=== PATIENT | male | born 1965 | race Asian ===

== ENCOUNTER 2023-03-30 23:15 | Emergency (ER) | payer OTHER ==
[~2023-03-30] VITALS: Ht 177.8 cm; Wt 79.4 kg
--- NOTE | 2023-03-30 23:21 | NUR ---
BIBA TO BED #11
[2023-03-30 23:22] VITALS: BP 141/80; PULSE 84; RESP 22; TEMP 97.7; O2SAT 97
--- NOTE | 2023-03-30 23:43 | NUR ---
Labs collected and sent to lab
--- NOTE | 2023-03-30 23:45 | NUR ---
Xray by bedside at this time
--- NOTE | 2023-03-30 23:46 | NUR ---
Attempted to collect urine for labs, per , patient is unable to produce urine. ERMD made aware.
[2023-03-30 23:47] LABS: BASOPHILS % (AUTO) 0.6 % (0.0-2.0); EOSINOPHILS # (AUTO) 0.3 K/uL (0-0.4); EOSINOPHILS % (AUTO) 3.3 % (0.0-4.0); HEMATOCRIT 36.3 % (36-52); HEMOGLOBIN 12.2 g/dL (12.0-18.0); LYMPHOCYTES # (AUTO) 0.9 K/uL (2.0-11.5); MEAN CORPUSCULAR HEMOGLOBIN 32 pg (27-31); MEAN CORPUSCULAR HGB CONC 34 g/dL (33-37); MEAN CORPUSCULAR VOLUME 93.9 fL (80-94); MONOCYTES # (AUTO) 0.5 K/uL (0.8-1.0); NEUTROPHILS # (AUTO) 6.1 K/uL (1.8-7.7); NEUTROPHILS % (AUTO) 78.1 % (42.2-75.2); PLATELET COUNT (AUTO) 174 K/uL (140-450); RED BLOOD CELL COUNT(AUTO) 3.86 MIL/uL (4.20-6.10); RED CELL DISTRIBUTION WIDTH 15.3 % (11.6-13.7); WHITE BLOOD COUNT (AUTO) 7.8 K/uL (4.8-10.8)
[2023-03-31 00:13] LABS: ALBUMIN 3.8 g/dL (3.4-5.0); ASPARTATE AMINOTRANSFERASE 15 U/L (15-37); CARBON DIOXIDE 27.4 mmol/L (21-32); CHLORIDE 97 mmol/L (98-107); CREATININE 6.8 mg/dL (0.6-1.3); GFR ARICAN-AMERICAN 11 mL/min (>90); GLUCOSE 253 mg/dL (74-106); POTASSIUM 4.4 mmol/L (3.5-5.1); TOTAL BILIRUBIN 0.3 mg/dL (0.0-1.0)
[2023-03-31 00:14] LABS: UREA NITROGEN, BLOOD 72 mg/dL (7-18)
[2023-03-31 00:15] LABS: SODIUM SERUM 138 mmol/L (136-145)
--- NOTE | 2023-03-31 00:22 | NUR ---
Pt was taken to CT
[2023-03-31] MEDS ORDERED: MORPHINE SULFATE 4 MG/ML SYR IVP ONE (00:50)
--- NOTE | 2023-03-31 03:10 | NUR ---
Pt with episodes of right arm tremors, ERMD made aware and orders were received.
[2023-03-31] MEDS ORDERED: levETIRAcetam 1,000 MG in NACL 0.9% 100 ML IV ONE (03:15)
[2023-03-31] MEDS ORDERED: levETIRAcetam 100 MG/ML VIAL IV ONE (03:18)
--- NOTE | 2023-03-31 06:35 | NUR ---
Report given for transfer of care to nurse Elisa at [facility].
[2023-03-31 06:45] VITALS: BP 137/74; PULSE 80; RESP 18; O2SAT 95
--- NOTE | 2023-03-31 06:47 | NUR ---
Pt picked up by 2 transport staff from care transportation to transfer to [facility]
== END 2023-03-31 06:47 | disposition home or self-care (01) ==
LOC: MED 23:15
DX: R25.1 Tremor, unspecified (principal); G40.89 Other seizures; I11.0 Hypertensive heart disease with heart failure; N18.6 End stage renal disease; E11.9 Type 2 diabetes mellitus without complications; Z99.2 Dependence on renal dialysis; Z79.4 Long term (current) use of insulin; Z79.899 Other long term (current) drug therapy; Z91.040 Latex allergy status; Z88.8 Allergy status to other drugs, medicaments and biological substances; Z98.890 Other specified postprocedural states
CPT/HCPCS: 36415; 70450; 71045; 80053; 84484; 85025; 93005; 96365; 99285; J1953; Q0092

== ENCOUNTER 2023-04-21 21:06 | Inpatient (IN) | payer OTHER ==
[~2023-04-21] VITALS: Ht 177.8 cm; Wt 70.3 kg
--- NOTE | 2023-04-21 21:06 | NUR ---
2051 - PT BROUGHT TO BED 11 VIA ALEXIS ALLISON
[2023-04-21 21:07] VITALS: BP 135/80; PULSE 80; RESP 16; TEMP 98.4; O2SAT 98
--- NOTE | 2023-04-21 21:07 | NUR ---
BIB ambulance for bloody stool. Per report, pt had dialysis this morning where he had an episode of seizure. pmhx dialysis, seizures, hypertension, stroke, DM2. Addendum: 04/22/23 at 0507 by [email or web address] Dialysis days: MWF, dialysis catheter on right arm.
[2023-04-21 21:45] LABS: BASOPHILS % (AUTO) 0.8 % (0.0-2.0); EOSINOPHILS # (AUTO) 0.3 K/uL (0-0.4); EOSINOPHILS % (AUTO) 7.9 % (0.0-4.0); HEMATOCRIT 31.9 % (36-52); HEMOGLOBIN 10.6 g/dL (12.0-18.0); LYMPHOCYTES # (AUTO) 0.7 K/uL (2.0-11.5); LYMPHOCYTES % (AUTO) 19.7 % (20.5-51.1); MEAN CORPUSCULAR HEMOGLOBIN 32 pg (27-31); MEAN CORPUSCULAR HGB CONC 33 g/dL (33-37); MEAN CORPUSCULAR VOLUME 95.6 fL (80-94); MONOCYTES # (AUTO) 0.3 K/uL (0.8-1.0); MONOCYTES % (AUTO) 8.6 % (1.7-9.3); NEUTROPHILS # (AUTO) 2.4 K/uL (1.8-7.7); PLATELET COUNT (AUTO) 123 K/uL (140-450); RED BLOOD CELL COUNT(AUTO) 3.34 MIL/uL (4.20-6.10); RED CELL DISTRIBUTION WIDTH 15.5 % (11.6-13.7); WHITE BLOOD COUNT (AUTO) 3.7 K/uL (4.8-10.8)
[2023-04-21 22:00] LABS: PROTHROMBIN TIME 10.5 secs (10.8-13.4)
[2023-04-21 22:04] LABS: ALBUMIN 3.3 g/dL (3.4-5.0); ANION GAP 12.7 (8-16); ASPARTATE AMINOTRANSFERASE 18 U/L (15-37); CARBON DIOXIDE 29.3 mmol/L (21-32); CHLORIDE 101 mmol/L (98-107); GFR ARICAN-AMERICAN 19 mL/min (>90); GLUCOSE 209 mg/dL (74-106); LIPASE 81 U/L (73-393); SODIUM SERUM 139 mmol/L (136-145); TOTAL BILIRUBIN 0.3 mg/dL (0.0-1.0); UREA NITROGEN, BLOOD 22 mg/dL (7-18)
[2023-04-21 22:10] LABS: CREATININE 4.1 mg/dL (0.6-1.3)
[2023-04-21] MEDS ORDERED: NACL 0.9% 500 ML IV ONE (22:45)
[2023-04-21] MEDS ORDERED: PANTOPRAZOLE 80 MG in NACL 0.9% 100 ML IVP SCH (23:00)
[2023-04-21] MEDS ORDERED: PANTOPRAZOLE 40 MG INJ VIAL IVP ONE (23:00)
--- NOTE | 2023-04-21 23:15 | NUR ---
Per patient's , pt no longer produces urine. ERMD was notified.
--- NOTE | 2023-04-22 00:10 | NUR ---
Pt stated pt having seizure episodes after dialysis for the past week. ERMD was made aware.
--- NOTE | 2023-04-22 03:13 | NUR ---
Resting comfortably at this time. Rise and fall of chest noted. No s/s pain or distress.
--- NOTE | 2023-04-22 04:41 | NUR ---
Resting comfortably, rise and fall of chest noted. No s/s pain or discomfort.
[2023-04-22] MEDS ORDERED: CINA30TA4 PO (04:56)
[2023-04-22] MEDS ORDERED: FOLI1TAB90 PO (04:56)
[2023-04-22] MEDS ORDERED: CARV25TA2 PO ×2 (04:56)
[2023-04-22] MEDS ORDERED: CLON-529 TD (04:56)
[2023-04-22] MEDS ORDERED: ACET-1182 PO (04:56)
[2023-04-22] MEDS ORDERED: NA P133N1 RC (04:56)
[2023-04-22] MEDS ORDERED: DOCU100T31 PO (04:56)
[2023-04-22] MEDS ORDERED: AMLO10TA87 PO (04:56)
[2023-04-22] MEDS ORDERED: CLON0.1T15 PO ×2 (04:56)
[2023-04-22] MEDS ORDERED: BISA-246 RC (04:56)
[2023-04-22] MEDS ORDERED: ATOR40TA40 PO (04:56)
--- NOTE | 2023-04-22 05:20 | NUR ---
IV cannula on Lt. Hand Infiltrated and removed. Reinsertion done and successful at Lt AC with G. 22 cannula.
[2023-04-22] MEDS ORDERED: POTASSIUM CHLORIDE 10 MEQ TABER PO PRN (05:50)
[2023-04-22] MEDS ORDERED: ZOLPIDEM 5 MG TAB PO PRN (05:50)
[2023-04-22] MEDS ORDERED: ACETAMINOPHEN 325 MG TAB PO PRN (05:50)
[2023-04-22] MEDS ORDERED: DOCUSATE SODIUM 100 MG GELCAP PO PRN (05:50)
[2023-04-22] MEDS ORDERED: ONDANSETRON 4 MG/2 ML VIAL IM/IVP PRN (05:50)
[2023-04-22] MEDS ORDERED: guaiFENesin DM 200/20 MG-10 ML 10 ML UDC PO PRN (05:50)
[2023-04-22] MEDS ORDERED: NACL 0.9% 1,000 ML IV SCH (05:50)
--- NOTE | 2023-04-22 06:10 | NUR ---
Reports given to RASHAD Lara from [facility]. Pt transferred comfortably.
[2023-04-22 06:22] LABS: BASOPHILS % (AUTO) 0.6 % (0.0-2.0); EOSINOPHILS # (AUTO) 0.3 K/uL (0-0.4); EOSINOPHILS % (AUTO) 6.8 % (0.0-4.0); HEMATOCRIT 32.5 % (36-52); HEMOGLOBIN 10.8 g/dL (12.0-18.0); LYMPHOCYTES % (AUTO) 19.7 % (20.5-51.1); MEAN CORPUSCULAR HEMOGLOBIN 32 pg (27-31); MEAN CORPUSCULAR HGB CONC 33 g/dL (33-37); MONOCYTES # (AUTO) 0.4 K/uL (0.8-1.0); NEUTROPHILS # (AUTO) 3.1 K/uL (1.8-7.7); NEUTROPHILS % (AUTO) 63.9 % (42.2-75.2); PLATELET COUNT (AUTO) 122 K/uL (140-450); RED BLOOD CELL COUNT(AUTO) 3.39 MIL/uL (4.20-6.10); RED CELL DISTRIBUTION WIDTH 15.6 % (11.6-13.7); WHITE BLOOD COUNT (AUTO) 4.9 K/uL (4.8-10.8)
[2023-04-22 06:47] LABS: ALBUMIN 3.4 g/dL (3.4-5.0); ANION GAP 13.2 (8-16); CARBON DIOXIDE 28.9 mmol/L (21-32); MAGNESIUM 2.5 mg/dL (1.8-2.4); PHOSPHORUS 3.4 mg/dL (2.5-4.9); POTASSIUM 4.1 mmol/L (3.5-5.1); TOTAL BILIRUBIN 0.3 mg/dL (0.0-1.0)
[2023-04-22 06:49] LABS: CREATININE 4.8 mg/dL (0.6-1.3)
--- NOTE | 2023-04-22 07:03 | NUR ---
CRITICAL LAB RESULTS REPORTED TO MD Huff CREATININE 4.9
--- NOTE | 2023-04-22 07:17 | NUR ---
RECEIVED BEDSIDE ENDORSEMENT FROM HUMAN RESOURCES ASSISTANT NURSE FOR CONTINUITY OF CARE. PT IS AWAKE, NO SIGN OF DISTRESS. CALL LIGHT WITHIN REACH.
[2023-04-22 08:00] VITALS: BP 185/90; PULSE 67; PULSE 74; PULSE 77; RESP 18; TEMP 97.1; O2SAT 100; O2SAT 96
[2023-04-22] MEDS ORDERED: CLONIDINE HYDROCHLORIDE 0.1 MG TAB PO SCH (08:55)
--- NOTE | 2023-04-22 08:59 | NUR ---
PATIENT HAS BEEN SCREENED AND CATEGORIZED MODERATE NUTRITION RISK. PATIENT WILL BE SEEN WITHIN 3-5 DAYS OF ADMISSION. 04/25/23-04/27/[address]
[2023-04-22] MEDS ORDERED: PANTOPRAZOLE 40 MG TABEC PO SCH (09:00)
[2023-04-22] MEDS ORDERED: CARVEDILOL 25 MG PO SCH (09:00)
[2023-04-22] MEDS: PANTOPRAZOLE 40 MG INJ VIAL IVP SCH ×2 (09:29→11:25)
[2023-04-22] MEDS ORDERED: DEXTROSE 50% 50 ML SYR IVP PRN (11:35)
[2023-04-22 12:00] VITALS: BP 153/69; PULSE 81; PULSE 82; RESP 16; TEMP 96.8; O2SAT 97
--- NOTE | 2023-04-22 12:12 | NUR ---
DC PLANN[age] YRS OLD MALE PATIENT WAS ADMITTED FROM [facility] WITH A DX OF LOWER GI BLEED AND SEIZURE DISORDER. PATIENT HAS A HX OF ESRD ON DIALYSIS , SZ AND STROKE . CT ABD/PELVIS SHOWED THICKENING OF THE RECTUM WITH SIGNIFICANT PERIRECTAL INFLAMMATORY. CXR NORMAL CHEST. ADMINISTERED IVF, IV KEPPRA AND CONTINUED HOME MEDS. CONSULTED WITH NEPHRO, GI AND NEURO. DC PLAN TO RETURN TO [facility] WHEN STABLE. CM TO FOLLOW Addendum: 04/26/23 at 1021 by NYDIA BRUNO CM RECEIVED ORDER FOR PATIENT TO GO BACK TO SNF FOR CONTINUE OF CARE. FAXED ALL PAPERWORK TO [facility]. WILL FOLLOW UP WITH MORE INFO. Addendum: 04/26/23 at 1113 by NYDIA BRUNO CM SPOKE WITH [facility] ([facility] LOCATED AT [address] [id number]. PATIENT WILL BE GOING TO ROOM 2-B UNDER DR TALBOT. TRANSPORTATION WILL BE ARRANGED ONCE DR CHANDLER TALKS TO FAMILY AND GIVE THE OK. Addendum: 04/26/23 at 1215 by Irina Zendejas RN DC PLANNING: DR CHANDLER DISCUSSED WITH PT'S DAUGHTER THE ISSUE AND CONCERN AND ORDERED MRI OF THE BRAIN AND LTAC EVALUATION. CM FAXED TO [facility]. CM TO FOLLOW. Addendum: 04/29/23 at 1303 by Irina Zendejas RN DC PLANNING: PER DR NORWOOD NEUROLOGIST IS NO SEIZURE FOR 24 HRS PATIENT CAN BE DC TO [facility]. CALLED KWAME AT [facility], FAXED THE LATEST CLINICALS. PER KWAME AWAITING FOR BED. CM TO FOLLOW Addendum: 04/29/23 at 1640 by Irina Zendejas RN DC PLANNING: RECEIVED A CALL FROM [facility] CHANG STATED NO BED AVAILABLE TONIGHT, WILL FOLLOW UP TOMORROW. CM TO FOLLOW Addendum: 04/30/23 at 1341 by DEVORA JOAQUIN CM DC PLANNING [facility] ACCEPTED PATIENT .ACCEPTING MD DR. NOLVIA [phone].PATIENT WILL GO TO ROOM 211.CAN SEND PATIENT AFTER 8P.RN TO RN REPORT .UNIT NURSE TO BE NOTIFIED.[facility] TRANSPORT TO BE ARRANGED.
--- NOTE | 2023-04-22 15:30 | NUR ---
PT'S IV INFILTRATED, IV SITE STILL ON THE L FA G 22. PATENT AND INTACT. CALL LIGHT WITHIN REACH.
[2023-04-22 16:00] VITALS: BP 176/73; PULSE 83; PULSE 85; RESP 16; TEMP 98.3; O2SAT 98
[2023-04-22] MEDS: BLOOD GLUCOSE MONITORING 1 DEV DEV FS SCH ×2 (16:30→20:38)
[2023-04-22] MEDS: hydrALAZINE 10 MG TAB PO SCH (18:50)
--- NOTE | 2023-04-22 19:25 | NUR ---
GAVE BEDSIDE REPORT TO BASIC SCIENCES PROFESSOR NURSE FOR CONTINUITY OF CARE. PT IS AWAKE, JUST FINISHED DINNER, NO SIGN OF DISTRESS. CALL LIGHT WITHIN REACH.
--- NOTE | 2023-04-22 19:30 | NUR ---
RECEIVED PT FROM AM NURSE FOR CONTINUITY OF CARE. PT IS STABLE
[2023-04-22 20:00] VITALS: BP 179/81; PULSE 90; PULSE 91; RESP 16; RESP 18; TEMP 97.9; O2SAT 98
[2023-04-22] MEDS: levETIRAcetam 500 MG in NACL 0.9% 100 ML IV SCH (20:09)
[2023-04-22] MEDS: carvediloL 12.5 MG TAB PO SCH (20:10)
[2023-04-22] MEDS ORDERED: bisacodyL 5 MG TABEC PO SCH (21:20)
[2023-04-22] MEDS: SUPREP BOWEL PREP KIT 354 ML SOLN.RECON PO SCH (22:41)
[2023-04-23] VITALS: BP 169/78; PULSE 81; PULSE 88; RESP 16; TEMP 98; O2SAT 98
[2023-04-23] MEDS: hydrALAZINE 10 MG TAB PO SCH ×2 (00:10→06:00)
[2023-04-23] MEDS: CLONIDINE HYDROCHLORIDE 0.1 MG TAB PO PRN ×2 (01:37→21:37)
[2023-04-23 04:00] VITALS: BP 159/64; PULSE 78; PULSE 79; RESP 16; TEMP 97.6; O2SAT 98
--- NOTE | 2023-04-23 06:00 | NUR ---
NO SEIZURE ACTIVITY NOTED DURING ROOFING CONTRACTOR
[2023-04-23 06:30] LABS: ALBUMIN 3.2 g/dL (3.4-5.0); ANION GAP 18.6 (8-16); CARBON DIOXIDE 26.6 mmol/L (21-32); POTASSIUM 4.2 mmol/L (3.5-5.1); TOTAL BILIRUBIN 0.4 mg/dL (0.0-1.0)
[2023-04-23 06:32] LABS: CREATININE 6.4 mg/dL (0.6-1.3)
[2023-04-23 06:37] LABS: BASOPHILS % (AUTO) 0.6 % (0.0-2.0); EOSINOPHILS # (AUTO) 0.2 K/uL (0-0.4); EOSINOPHILS % (AUTO) 3.2 % (0.0-4.0); HEMATOCRIT 30.6 % (36-52); HEMOGLOBIN 10.1 g/dL (12.0-18.0); LYMPHOCYTES # (AUTO) 1.2 K/uL (2.0-11.5); LYMPHOCYTES % (AUTO) 18.8 % (20.5-51.1); MEAN CORPUSCULAR HEMOGLOBIN 32 pg (27-31); MEAN CORPUSCULAR HGB CONC 33 g/dL (33-37); MEAN CORPUSCULAR VOLUME 95.6 fL (80-94); MONOCYTES # (AUTO) 0.4 K/uL (0.8-1.0); MONOCYTES % (AUTO) 6.9 % (1.7-9.3); NEUTROPHILS # (AUTO) 4.5 K/uL (1.8-7.7); NEUTROPHILS % (AUTO) 70.5 % (42.2-75.2); PLATELET COUNT (AUTO) 119 K/uL (140-450); RED CELL DISTRIBUTION WIDTH 15.1 % (11.6-13.7); WHITE BLOOD COUNT (AUTO) 6.4 K/uL (4.8-10.8)
--- NOTE | 2023-04-23 06:40 | NUR ---
REPORTED TO MD CREATININE LEVEL OF 6.4 AWAITING RESPONSE
[2023-04-23] MEDS: BLOOD GLUCOSE MONITORING 1 DEV DEV FS SCH ×4 (06:49→20:24)
--- NOTE | 2023-04-23 07:17 | NUR ---
RECEIVED BEDSIDE REPORT FROM JOB SITE SUPERINTENDENT NURSE FOR CONTINUITY OF CARE. PT IS ASLEEP, AWAKEN BY NAME. NO SIGN OF DISTRESS. CALL LIGHT WITHIN REACH.
[2023-04-23 08:00] VITALS: BP 142/49; PULSE 76; PULSE 78; RESP 18; TEMP 96.8; O2SAT 100; O2SAT 98
[2023-04-23] MEDS ORDERED: cloNIDine-TTS3 0.3 MG/24 HR 1 EA PATCH TD SCH (09:00)
[2023-04-23] MEDS ORDERED: bisacodyL 5 MG TABEC PO SCH (09:00)
[2023-04-23] MEDS: cloNIDine-TTS1 0.1 MG/24 HR 1 EA PATCH TD SCH (09:00)
[2023-04-23] MEDS: carvediloL 12.5 MG TAB PO SCH ×2 (09:00→20:23)
--- NOTE | 2023-04-23 09:00 | NUR ---
HELD AM BP MEDS AND IV MEDS FOR HD IN THE MORNING. CALL LIGHT WITHIN REACH.
[2023-04-23] MEDS: SUPREP BOWEL PREP KIT 354 ML SOLN.RECON PO SCH (09:03)
--- NOTE | 2023-04-23 09:52 | NUR ---
PT. WITH LOW PAPA SCALE AT MODERATE TO HIGH RISK, CONTINUE TO FOLLOW PRESSURE INJURY PREVENTION INTERVENTIONS. -POSITIONING: TURN AND REPOSITION PATIENT Q 2H OR SOONER USE PILLOWS TO KEEP BONY PROMINENCES FROM DIRECT CONTACT WITH SURFACES USE REPOSITIONING WEDGES TO PROVIDE 30-DEGREE ANGLE FOR SIDE LYING POSITIONS OFFLOADING OR FOAM DRESSING TO ALL TUBING TO PREVENT MEDICAL DEVICES RELATED PRESSURE INJURY -RE-EVALUATING AND MANAGING INCONTINENCE MONITOR SKIN CONDITION DURING POSITION CHANGE DO NOT MASSAGE REDNESS, BONY PROMINENCES FREQUENT BHARTI-CARE AND PROVIDE BARRIER CREAMS PRN IF SOILING MOISTURE CONTROL BY OFFER BED DOZIER/URINAL /ABSORBENT PAD TO WICK AND HOLD MOISTURE KEEP SKIN DRY AND PROTECT FROM FRICTION -MANAGE FRICTION/SHEAR/MOBILITY KEEP HOB AT THE LOWEST LEVEL OF ELEVATION NO MORE THAN 30 DEGREE UNLESS OTHERWISE CONTRAINDICATED USE LIFT SHEET OR TRANSFER DEVICE TO MOVE PATIENT AND PREVENT LATERAL SHEER. PROTECT HEELS, ELBOWS BONY PROMINENCES WITH SKIN BERRIES OR FOAM DRESSING IF EXPOSED TO FRICTION OFFLOAD BILATERAL HEELS BY PLACING PILLOWS UNDER CALVES AT ALL TIMES, UNLESS OTHERWISE CONTRAINDICATED -PRESSURE REDISTRIBUTION SURFACE THERAPY ELOISA ISOFLEX MATTRESS -NUTRITION: PLEASE FOLLOW RD RECOMMENDATIONS AND OFFER NUTRITION SUPPLEMENTS IF ORDERED. PLEASE CONTACT WOUND CARE NURSE FOR ANY QUESTION AND CHANGE OF WOUND CONDITION.
--- NOTE | 2023-04-23 11:20 | NUR ---
'S PATIENT HAS BEEN CALLING ME TO CHECK ON HER BECAUSE SHE STATED THAT THE PT SPEAKS SLOWER THAN USUAL. I WENT AND TALKED TO THE PATIENT, MANAGER SOUND STATED THAT PATIENT'S VS ARE STABLE. PT SEEMED OKAY PER PARAMETERS. AT 1120, PATIENT'S TOLD THE MANAGER SOUND TO STOP THE DIALYSIS. PT WAS DIALYZED FOR 2.5HOURS WITH OUTPUT OF 1300CC. DR. ANN MADE AWARE.
--- NOTE | 2023-04-23 11:44 | NUR ---
Dance Choreographer CERAMICS INSTRUCTOR conducted a discharge planing assessment for pt by calling Rn. Mejia at [facility]. Pt. has been there since 02/04/22. As per facility RnJackie, pts. level of functioning is a total dependent, bed bound. Please refer to this assessment.
[2023-04-23 12:00] VITALS: BP 154/76; PULSE 78; PULSE 81; RESP 18; TEMP 97.7; O2SAT 100
[2023-04-23] MEDS: hydrALAZINE 25 MG TAB PO SCH ×2 (13:00→17:53)
[2023-04-23] MEDS: VALPROIC ACID 250 MG/5 ML UDC PO SCH ×2 (13:40→20:24)
[2023-04-23] MEDS ORDERED: fentaNYL citrate 0.05 MG/ML VIAL ONE (13:59)
[2023-04-23] MEDS ORDERED: diphenhydrAMINE 50 MG/ML VIAL ONE (13:59)
[2023-04-23] MEDS: levETIRAcetam 500 MG in NACL 0.9% 100 ML IV SCH ×2 (13:59→20:24)
[2023-04-23] MEDS ORDERED: MIDAZOLAM 5 MG/5 ML VIAL ONE (14:00)
--- NOTE | 2023-04-23 14:10 | NUR ---
ENGINEER SOILS CAME TO EPIC AMBULATORY ANALYSTS THE PT FOR THE COLONOSCOPY. PT IS AWAKE AND STABLE, AT BEDSIDE. PT LEFT VIA GURNEY.
[2023-04-23] MEDS: INSULIN LISPRO SLIDING SCALE 100 UNITS/ML VIAL SUBQ PRN ×3 (14:14→20:25)
--- NOTE | 2023-04-23 15:20 | NUR ---
PT ARRIVED BACK IN THE UNIT VIA GURNEY POST COLONOSCOPY, PT IS AWAKE AND ALERT. NO SIGN OF DISTRESS. VS ARE T:98 HR:74 RR:17 BP:159/82 O2SAT: 96%. CALL LIGHT WITHIN REACH.
[2023-04-23] MEDS ORDERED: MIDAZOLAM 2 MG/2 ML VIAL IVP ONE (15:35)
[2023-04-23] MEDS ORDERED: fentaNYL citrate 0.05 MG/ML VIAL IVP ONE (15:35)
[2023-04-23 16:00] VITALS: BP 145/59; PULSE 75; PULSE 76; RESP 16; TEMP 97.5; O2SAT 97
[2023-04-23] MEDS: HYDROcodone/APAP 7.5/325 MG 1 TAB PO PRN (17:55)
--- NOTE | 2023-04-23 19:10 | NUR ---
GAVE BEDSIDE REPORT TO MEDICATION MANAGER NURSE FOR CONTINUITY OF CARE. PT IS AWAKE, AT BEDSIDE. PT IS STABLE, CALL LIGHT WITHIN REACH.
--- NOTE | 2023-04-23 19:15 | NUR ---
RECEIVED REPORT FROM DAY SHIFT NURSE FOR CONTINUITY OF CARE. PT IS RESTING IN BED. NOT IN ANY DISTRESS. BREATHING EVEN AND UNLABORED. BY BEDSIDE. POC DISCUSSED. CALL LIGHT WITHIN REACH. WILL CONTINUE TO MONITOR THE PT.
[2023-04-23 20:00] VITALS: BP 168/78; PULSE 89; PULSE 92; RESP 16; TEMP 98; O2SAT 96
--- NOTE | 2023-04-23 20:30 | NUR ---
SCHEDULE MEDICATIONS GIVEN. NO ADVERSE REACTION NOTED. WILL CONTINUE TO MONITOR THE PT.
[2023-04-23] MEDS ORDERED: amLODIPine 5 MG TAB PO SCH (21:00)
[2023-04-24] VITALS: BP 122/64; PULSE 74; RESP 18; TEMP 97.3; O2SAT 96
--- NOTE | 2023-04-24 01:15 | NUR ---
OBSERVED PT. PT IS SLEEPING COMFORTABLY IN BED. NOT IN ANY DISTRESS. BREATHING EVEN AND UNLABORED. CALL LIGHT WITHIN REACH. WILL CONTINUE TO MONITOR THE PT.
[2023-04-24 04:00] VITALS: BP 177/77; PULSE 71; PULSE 76; RESP 18; TEMP 97; O2SAT 95
--- NOTE | 2023-04-24 04:30 | NUR ---
PT WAS CLEANED AND CHANGED. TOLERATED IT WALL. PT HAD SMALL BM.
[2023-04-24] MEDS: CLONIDINE HYDROCHLORIDE 0.1 MG TAB PO PRN ×2 (04:37→18:47)
[2023-04-24 05:30] LABS: BASOPHILS % (AUTO) 0.7 % (0.0-2.0); EOSINOPHILS # (AUTO) 0.3 K/uL (0-0.4); EOSINOPHILS % (AUTO) 4.6 % (0.0-4.0); HEMATOCRIT 34.7 % (36-52); HEMOGLOBIN 11.5 g/dL (12.0-18.0); LYMPHOCYTES # (AUTO) 1.8 K/uL (2.0-11.5); LYMPHOCYTES % (AUTO) 29.5 % (20.5-51.1); MEAN CORPUSCULAR HEMOGLOBIN 32 pg (27-31); MEAN CORPUSCULAR HGB CONC 33 g/dL (33-37); MEAN CORPUSCULAR VOLUME 96.8 fL (80-94); MONOCYTES # (AUTO) 0.6 K/uL (0.8-1.0); NEUTROPHILS # (AUTO) 3.5 K/uL (1.8-7.7); NEUTROPHILS % (AUTO) 56.2 % (42.2-75.2); PLATELET COUNT (AUTO) 124 K/uL (140-450); RED BLOOD CELL COUNT(AUTO) 3.58 MIL/uL (4.20-6.10); RED CELL DISTRIBUTION WIDTH 15.3 % (11.6-13.7); WHITE BLOOD COUNT (AUTO) 6.2 K/uL (4.8-10.8)
[2023-04-24 06:07] LABS: ALBUMIN 3.5 g/dL (3.4-5.0); ANION GAP 18.7 (8-16); CARBON DIOXIDE 28.1 mmol/L (21-32); POTASSIUM 3.8 mmol/L (3.5-5.1); TOTAL BILIRUBIN 0.4 mg/dL (0.0-1.0)
[2023-04-24 06:16] LABS: CREATININE 6.5 mg/dL (0.6-1.3)
[2023-04-24] MEDS: BLOOD GLUCOSE MONITORING 1 DEV DEV FS SCH ×4 (06:44→21:15)
--- NOTE | 2023-04-24 07:16 | NUR ---
ENDORSED PT TO DAY SHIFT NURSE FOR CONTINUITY OF CARE. PT IS STABLE.
--- NOTE | 2023-04-24 07:17 | NUR ---
RECEIVED BEDSIDE REPORT FOR CONTINUITY OF CARE. PT IS ASLEEP, AWAKEN BY NAME, NO SIGN OF DISTRESS. CALL LIGHT WITHIN REACH.
[2023-04-24 08:00] VITALS: BP 174/72; PULSE 72; PULSE 75; RESP 20; TEMP 96.8; O2SAT 100; O2SAT 96
[2023-04-24] MEDS ORDERED: prednisoLONE 1% OP 5 ML BTL OP SCH (09:00)
[2023-04-24] MEDS: levETIRAcetam 500 MG in NACL 0.9% 100 ML IV SCH ×2 (09:18→21:11)
[2023-04-24] MEDS: carvediloL 12.5 MG TAB PO SCH ×2 (09:20→21:10)
[2023-04-24] MEDS: VALPROIC ACID 250 MG/5 ML UDC PO SCH ×2 (09:21→21:11)
[2023-04-24] MEDS: hydrALAZINE 25 MG TAB PO SCH ×4 (09:21→18:00)
[2023-04-24] MEDS: PANTOPRAZOLE 40 MG INJ VIAL IVP SCH (09:22)
[2023-04-24] MEDS: prednisoLONE 1% OP 5 ML BTL OP SCH ×2 (09:23→21:13)
[2023-04-24] MEDS: HYDROcodone/APAP 7.5/325 MG 1 TAB PO PRN ×2 (09:39→17:27)
[2023-04-24] MEDS ORDERED: REFRESH LIQUIGEL OP PRN (10:30)
[2023-04-24] MEDS ORDERED: POLYVINYL ALCOHOL 1.4% OP 15 ML SOL OP SCH (11:30)
--- NOTE | 2023-04-24 11:33 | NUR ---
AROUND 1130, PT HAD A FOCAL SEIZURE FOR 30SECS. AT BEDSIDE. CALLED CARDIO FOR EEG FOLLOW UP AND LAB FOR KEPPRA LEVELS. INFORMED. CALL LIGHT WITHIN REACH.
[2023-04-24 12:00] VITALS: BP 154/74; PULSE 72; PULSE 74; RESP 20; TEMP 97.1; O2SAT 99
--- NOTE | 2023-04-24 13:25 | NUR ---
EEG TEST STARTED, PT IS STABLE, AT BEDSIDE. CALL LIGHT WITHIN REACH.
[2023-04-24 16:00] VITALS: BP 174/80; PULSE 72; PULSE 74; RESP 20; TEMP 97.8; O2SAT 97
[2023-04-24] MEDS: INSULIN LISPRO SLIDING SCALE 100 UNITS/ML VIAL SUBQ PRN ×2 (17:36→21:14)
--- NOTE | 2023-04-24 19:15 | NUR ---
GAVE BEDSIDE REPORT TO THE COMPUTER FORENSICS TECHNICIAN NURSE FOR CONTINUITY OF CARE, PT IS AWAKE, NO SIGN OF DISTRESS, CALL LIGHT WITHIN REACH.
--- NOTE | 2023-04-24 19:30 | NUR ---
RECEIVED REPORT FROM DAY SHIFT NURSE FOR CONTINUITY OF CARE. PT IS RESTING IN BED. NOT IN ANY DISTRESS. BREATHING EVEN AND UNLABORED. POC DISCUSSED. CALL LIGHT WITHIN REACH. WILL CONTINUE TO MONITOR THE PT.
[2023-04-24 20:00] VITALS: BP 154/68; PULSE 79; PULSE 82; RESP 18; TEMP 97.4; O2SAT 96
[2023-04-24] MEDS ORDERED: MIRTAZAPINE 15 MG TAB PO SCH (21:00)
[2023-04-24] MEDS: lisinopriL 10 MG TAB PO SCH (21:11)
[2023-04-24] MEDS: MIRTAZAPINE 15 MG TAB PO SCH (21:11)
--- NOTE | 2023-04-24 21:20 | NUR ---
SCHEDULE MEDICATIONS GIVEN. NO ADVERSE REACTION NOTED. PT WAS ALSO CLEANED AND CHANGED. TOLERATED IT WELL.
[2023-04-25] VITALS: BP 144/74; PULSE 74; RESP 16; TEMP 97.1; O2SAT 95
[2023-04-25] MEDS: hydrALAZINE 25 MG TAB PO SCH ×4 (00:12→18:00)
--- NOTE | 2023-04-25 01:40 | NUR ---
OBSERVED PT. PT IS SLEEPING IN BED. NOT IN ANY DISTRESS. BREATHING EVEN AND UNLABORED. CALL LIGHT WITHIN REACH. WILL CONTINUE TO MONITOR THE PT.
[2023-04-25 04:00] VITALS: BP 106/68; PULSE 73; PULSE 88; RESP 18; TEMP 97.1; O2SAT 97
[2023-04-25 05:21] LABS: BASOPHILS % (AUTO) 0.8 % (0.0-2.0); EOSINOPHILS # (AUTO) 0.4 K/uL (0-0.4); EOSINOPHILS % (AUTO) 6.2 % (0.0-4.0); HEMATOCRIT 29.8 % (36-52); HEMOGLOBIN 9.9 g/dL (12.0-18.0); LYMPHOCYTES # (AUTO) 1.8 K/uL (2.0-11.5); LYMPHOCYTES % (AUTO) 29.7 % (20.5-51.1); MEAN CORPUSCULAR HEMOGLOBIN 32 pg (27-31); MEAN CORPUSCULAR HGB CONC 33 g/dL (33-37); MEAN CORPUSCULAR VOLUME 95.9 fL (80-94); MONOCYTES # (AUTO) 0.5 K/uL (0.8-1.0); MONOCYTES % (AUTO) 7.9 % (1.7-9.3); NEUTROPHILS # (AUTO) 3.3 K/uL (1.8-7.7); NEUTROPHILS % (AUTO) 55.4 % (42.2-75.2); PLATELET COUNT (AUTO) 116 K/uL (140-450); RED CELL DISTRIBUTION WIDTH 15.7 % (11.6-13.7); WHITE BLOOD COUNT (AUTO) 5.9 K/uL (4.8-10.8)
[2023-04-25 05:27] LABS: ANION GAP 20.2 (8-16); CARBON DIOXIDE 25.1 mmol/L (21-32); POTASSIUM 4.3 mmol/L (3.5-5.1); TOTAL BILIRUBIN 0.3 mg/dL (0.0-1.0)
--- NOTE | 2023-04-25 07:18 | NUR ---
ENDORSED PT TO DAY SHIFT NURSE FOR CONTINUITY OF CARE. PT IS STABLE.
[2023-04-25] MEDS: BLOOD GLUCOSE MONITORING 1 DEV DEV FS SCH ×4 (07:58→20:20)
[2023-04-25 08:00] VITALS: BP 124/70; PULSE 78; PULSE 79; RESP 18; TEMP 97.3; O2SAT 97
[2023-04-25] MEDS: PANTOPRAZOLE 40 MG INJ VIAL IVP SCH (09:01)
[2023-04-25] MEDS: levETIRAcetam 500 MG in NACL 0.9% 100 ML IV SCH ×2 (09:08→20:02)
[2023-04-25] MEDS: VALPROIC ACID 250 MG/5 ML UDC PO SCH ×2 (09:12→20:37)
[2023-04-25] MEDS: prednisoLONE 1% OP 5 ML BTL OP SCH ×2 (09:16→20:36)
[2023-04-25] MEDS: carvediloL 12.5 MG TAB PO SCH ×2 (09:18→20:59)
[2023-04-25] MEDS: NIFEdipine 60 MG TABER PO SCH (09:19)
[2023-04-25] MEDS: lisinopriL 10 MG TAB PO SCH ×2 (09:19→21:01)
[2023-04-25] MEDS: TIMOLOL OP 0.25% 5 ML BTL OP SCH (10:08)
[2023-04-25 12:00] VITALS: BP 135/74; PULSE 74; PULSE 78; RESP 18; TEMP 97.7; O2SAT 98
[2023-04-25] MEDS: HYDROcodone/APAP 7.5/325 MG 1 TAB PO PRN (13:37)
[2023-04-25 16:00] VITALS: BP 114/62; PULSE 78; PULSE 83; RESP 18; TEMP 96.7; O2SAT 96
--- NOTE | 2023-04-25 16:51 | NUR ---
PATIENT'S SPOUSE, SON AND OTHER TWO FAMILY/RELATIVE ARE HERE. STATE THAT PATIENT IS NOT IN HIS NORMAL STATUS BECAUSE HE TALKING SLOW W/ SLURRED SPEECH. NURSE INFORM DR. CASTELLANO AND RECEIVE HEAD CT W/O CONTRAST, CHEST X-RAY BECAUSE HEAR GURGLING SOUND, LAB ALSO DRAWING AMMONIA, PLASMA LEVEL FOR FURTHER EVALUATION NEEDS. PER DR. NORWOOD, PATIENT'S EEG SHOWS MILD ABNORMAL. WILL CONTINUE TO MONITOR. Addendum: 04/25/23 at 1832 by Chitra Cochran RN DAUGHTER AND ARE HERE AND THINKING PATIENT IS HAVING STRUCK, THEREFORE, FAMILY REQUESTING EKG, NPO, AND ST EVALUATION. NURSE CONTACT PCP AND RECEIVE ORDER FOR EKG, TROPONIN ([id number], & AMMONIA [id number]) & ST EVALUATION (WILL CARRY ON EVALUATION TOMORROW). Addendum: 04/25/23 at 1837 by Chitra Cochran RN RECEIVE HEAD CT RESULT : "1. Diffuse cerebral and cerebellar atrophy with scattered white matter hypodensities which are nonspecific though likely related to sequela of chronic microvascular ischemia. 2. Negative for an acute intracranial process by noncontrast head CT. Should symptoms persist, an MRI follow-up is advised for more sensitive evaluation. 3. Chronic hyperdensity within the left orbit with postoperative changes 4. Focal encephalomalacia along the left frontal lobe. Evaluation for acute on chronic ischemia at the region would require MRI follow-up." NOW FAMILY REQUEST MRI. NURSE REPORT RESULT TO DR. CASTELLANO AND RECEIVE TO "MRI BRAIN W/O CONTRAST & DR. NORWOOD CONSULT." WILL F/U.
[2023-04-25] MEDS ORDERED: MORPHINE SULFATE 2 MG/ML SYR IVP SCH (17:50)
--- NOTE | 2023-04-25 19:30 | NUR ---
RECEIVED PT FROM AM NURSE FOR CONTINUITY OF CARE. PT IN STABLE CONDITION
[2023-04-25 20:00] VITALS: BP 106/48; PULSE 79; RESP 18; TEMP 98.1; O2SAT 98
[2023-04-25] MEDS: MIRTAZAPINE 15 MG TAB PO SCH (20:37)
[2023-04-26] VITALS (7 sets, daily range): BP systolic 125–182; BP diastolic 60–71; PULSE 77–87; RESP 18; TEMP 96–98.5; O2SAT 95–100
[2023-04-26] MEDS: hydrALAZINE 25 MG TAB PO SCH ×4 (04:53→20:04)
[2023-04-26 06:37] LABS: BASOPHILS % (AUTO) 0.6 % (0.0-2.0); EOSINOPHILS # (AUTO) 0.4 K/uL (0-0.4); EOSINOPHILS % (AUTO) 6.3 % (0.0-4.0); HEMATOCRIT 31.2 % (36-52); HEMOGLOBIN 10.4 g/dL (12.0-18.0); LYMPHOCYTES # (AUTO) 1.6 K/uL (2.0-11.5); LYMPHOCYTES % (AUTO) 27.8 % (20.5-51.1); MEAN CORPUSCULAR HEMOGLOBIN 32 pg (27-31); MEAN CORPUSCULAR HGB CONC 33 g/dL (33-37); MEAN CORPUSCULAR VOLUME 96.5 fL (80-94); MONOCYTES # (AUTO) 0.4 K/uL (0.8-1.0); MONOCYTES % (AUTO) 7.2 % (1.7-9.3); NEUTROPHILS # (AUTO) 3.4 K/uL (1.8-7.7); NEUTROPHILS % (AUTO) 58.1 % (42.2-75.2); PLATELET COUNT (AUTO) 129 K/uL (140-450); RED BLOOD CELL COUNT(AUTO) 3.23 MIL/uL (4.20-6.10); RED CELL DISTRIBUTION WIDTH 15.3 % (11.6-13.7); WHITE BLOOD COUNT (AUTO) 5.8 K/uL (4.8-10.8)
[2023-04-26] MEDS: BLOOD GLUCOSE MONITORING 1 DEV DEV FS SCH ×4 (06:41→20:05)
[2023-04-26 07:04] LABS: ALBUMIN 3.2 g/dL (3.4-5.0); CARBON DIOXIDE 25.4 mmol/L (21-32); POTASSIUM 4.4 mmol/L (3.5-5.1); TOTAL BILIRUBIN 0.4 mg/dL (0.0-1.0)
[2023-04-26 07:11] LABS: CREATININE 9.4 mg/dL (0.6-1.3)
--- NOTE | 2023-04-26 07:15 | NUR ---
PATIENT CREATININE LEVEL IS 9.3. REPORTED TO
[2023-04-26] MEDS: lisinopriL 10 MG TAB PO SCH ×2 (09:00→20:04)
[2023-04-26] MEDS: NIFEdipine 60 MG TABER PO SCH (09:00)
[2023-04-26] MEDS: carvediloL 12.5 MG TAB PO SCH ×2 (09:00→20:04)
[2023-04-26] MEDS ORDERED: cloNIDine-TTS2 0.2 MG/24 HR 1 EA PATCH TD SCH (09:00)
[2023-04-26] MEDS: levETIRAcetam 500 MG in NACL 0.9% 100 ML IV SCH ×2 (09:19→20:03)
[2023-04-26] MEDS: PANTOPRAZOLE 40 MG INJ VIAL IVP SCH (09:20)
[2023-04-26] MEDS: prednisoLONE 1% OP 5 ML BTL OP SCH ×2 (09:25→20:05)
[2023-04-26] MEDS: TIMOLOL OP 0.25% 5 ML BTL OP SCH (09:26)
[2023-04-26] MEDS: VALPROIC ACID 250 MG/5 ML UDC PO SCH ×2 (09:48→20:03)
[2023-04-26] MEDS ORDERED: KEP500 PO (09:55)
--- NOTE | 2023-04-26 10:54 | NUR ---
RECEIVE DISCHARGE ORDER FOR PATIENT TO GO BACK HIS SNF BECAUSE PATIENT IS COME FOR SEIZURE DURING DIALYSIS, AND MEDICAL TEAM TREAT PATIENT'S BY ADJUST PATIENT'S SEIZURE MEDICATION, AND VERIFIED CONDITION VIA EEG (NORMAL EEG); THEN PATIENT'S FAMILY STATE THAT PATIENT DEVELOPED NEW CONDITION IGOR TALKING SLOW AND SLURRED SPEECH. MEDICAL TREAT TEAM RUN EKG, HEAD CT, AND LAB. AT THIS TIME DIALYSIS IS GOING TO PROCEEDING AT 1200, PENDING [facility] FABRICIO. HEAD CT SUGGEST MRI OF BRAIN WHICH MEDICAL TEAM PLAN TO LET PATIENT CARRY ON AFTER DISCHARGE BACK TO SNF WHICH PATIENT'S FAMILY DISAGREE AND WANTS MD CALL PATIENT'S DAUGHTERKAMRYN ([phone]) OTHERWISE WILL FILE APPEAL AGAINST THE MD'S DECISION. WILL F/U Addendum: 04/26/23 at 1256 by Chitra Cochran RN WENT THROUGH MRI CHECK WITH PATIENT'S SPOUSE (PATIENT IS S/P STROKE X4 AND UNABLE TO SIGN ANY DOCUMENTATION). 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 AFFILIATE MANAGER FAX THE CHECK LIST TO HOSPITAL THAT WILL PROVIDE MRI SERVICE AND PATIENT WILL HAVE MRI APPOINTMENT AT 0900, 04/27/2023. AT THIS TIME HEMO-DIALYSIS IS IN PROCESS AND ST FABRICIO WILL HOLD AFTER DIALYSIS IN TODAY. WILL CONTINUE TO MONITOR Addendum: 04/26/23 at 1327 by [address]ch[address] RN [address] EVAL COMPLETE AND PUREE NECTAR THICK LIQUID RECOMMEND. WILL CONTINUE TO MONITOR Addendum: 04/26/23 at 1454 by Chitra Cochran RN RECEIVE CALL FROM KWAME CHANG, FOR PATIENT'S MENTALITY AND SOME DEMOGRAPHY INFORMATION PART OF PREPARATION FOR MRI. NURSE INFORM THAT PATIENT IS ALERT, ORIENTED, ABLE TO MAKE NEED KNOW, NO ISOLATION, NO RESTRAINT, CO-OPERATIVE, ON PUREE NECTAR DIET. WILL CONTINUE TO MONITOR Addendum: 04/26/23 at 1602 by Chitra Cochran RN DIALYSIS COMPLETE AND 2 LITER REMOVED. PER DIALYSIS NURSE THAT PATIENT TOLERATE PROCEDURE ONLY VERY SHORT SEIZURE LIKE MOMENT NOTED DURING DIALYSIS PROCEDURE. SPOUSE STAY WITH PATIENT IN THE WHOLE PROCEDURE. WILL CONTINUE TO MONITOR Addendum: 04/26/23 at 1947 by Chitra Cochran RN ENDORSE PATIENT IN STABLE CONDITION TO PM SHIFT NURSE AFTER 2 L[address] REM[address] DIALYSIS[address] FABRICIO DONE, PATIENT'S DIET ADVANCE TO RENAL PUREE NECTAR START DINNER. PATIENT HAS NO SIGN OF SLURRED SPEECH NOTED AFTER DIALYSIS.
[2023-04-26] MEDS ORDERED: DEPER500 PO (11:25)
--- NOTE | 2023-04-26 19:15 | NUR ---
RECEIVED REPORT FROM DAY SHIFT NURSE FOR CONTINUITY OF CARE. PT IS AWAKE AND ALERT. RESTING IN BED. BY BEDSIDE. PT NOT IN ANY DISTRESS. POC DISCUSSED. CALL LIGHT WITHIN REACH. WILL CONTINUE TO MONITOR THE PT.
[2023-04-26] MEDS: MIRTAZAPINE 15 MG TAB PO SCH (20:04)
[2023-04-27] VITALS (11 sets, daily range): BP systolic 131–152; BP diastolic 45–83; PULSE 72–86; RESP 15–20; TEMP 97.2–98.5; O2SAT 94–100
--- NOTE | 2023-04-27 00:33 | NUR ---
OBSERVED PT. PT IS SLEEPING COMFORTABLY IN BED. NOT IN ANY DISTRESS. BREATHING EVEN AND UNLABORED. BED AT THE LOWEST POSITION. HEAD OF THE BED RAISED. WILL CONTINUE TO MONITOR THE PT.
[2023-04-27] MEDS: hydrALAZINE 25 MG TAB PO SCH ×2 (04:26→13:00)
--- NOTE | 2023-04-27 04:26 | NUR ---
SCHEDULE HYDRALAZINE GIVEN. PT VITAL SINGS STABLE. NO COMPLAINS FROM THE PT. HEAD OF THE BED RAISED. BED AT THE LOWEST POSITION. CALL LIGHT WITHIN REACH. WILL CONTINUE TO MONITOR.
[2023-04-27 06:41] LABS: BASOPHILS % (AUTO) 0.5 % (0.0-2.0); EOSINOPHILS # (AUTO) 0.2 K/uL (0-0.4); EOSINOPHILS % (AUTO) 2.4 % (0.0-4.0); HEMATOCRIT 29.3 % (36-52); HEMOGLOBIN 9.7 g/dL (12.0-18.0); LYMPHOCYTES # (AUTO) 1.1 K/uL (2.0-11.5); MEAN CORPUSCULAR HEMOGLOBIN 32 pg (27-31); MEAN CORPUSCULAR HGB CONC 33 g/dL (33-37); MEAN CORPUSCULAR VOLUME 95.5 fL (80-94); MONOCYTES # (AUTO) 0.5 K/uL (0.8-1.0); NEUTROPHILS # (AUTO) 5.3 K/uL (1.8-7.7); NEUTROPHILS % (AUTO) 75.1 % (42.2-75.2); PLATELET COUNT (AUTO) 115 K/uL (140-450); RED BLOOD CELL COUNT(AUTO) 3.07 MIL/uL (4.20-6.10); RED CELL DISTRIBUTION WIDTH 15.3 % (11.6-13.7); WHITE BLOOD COUNT (AUTO) 7.1 K/uL (4.8-10.8)
[2023-04-27 06:52] LABS: ALBUMIN 3.2 g/dL (3.4-5.0); ANION GAP 17.9 (8-16); CARBON DIOXIDE 26.3 mmol/L (21-32); POTASSIUM 4.2 mmol/L (3.5-5.1); TOTAL BILIRUBIN 0.5 mg/dL (0.0-1.0)
--- NOTE | 2023-04-27 07:00 | NUR ---
RECEIVED PT FROM TIRE MOLD TESTER FOR CONTINUITY OF CARE. AWAKE, AND RESPONSIVE. RESP. EVEN AND UNLABORED. AV SHUNT INTACT TO RFA. BRUIT AND THRILL PRESENT. IV SITE TO LT HAND. ON SALINE LOCK. NOT IN ANY DISTRESS NOTED. CALL LIGHT KEPT WITHIN REACH. WILL CONTINUE TO MONITOR.
--- NOTE | 2023-04-27 07:04 | NUR ---
ENDORSED PT TO DAY SHIFT NURSE FOR CONTINUITY OF CARE. PT IS STABLE.
[2023-04-27] MEDS: BLOOD GLUCOSE MONITORING 1 DEV DEV FS SCH ×4 (07:47→20:01)
--- NOTE | 2023-04-27 08:00 | NUR ---
Patient's Plan of Care was discussed and reviewed with MACHINE HOSTLER: AIDEN.
[2023-04-27] MEDS: VALPROIC ACID 250 MG/5 ML UDC PO SCH ×2 (08:43→21:00)
[2023-04-27] MEDS: carvediloL 12.5 MG TAB PO SCH ×2 (08:43→21:00)
[2023-04-27] MEDS: NIFEdipine 60 MG TABER PO SCH (08:43)
[2023-04-27] MEDS: lisinopriL 10 MG TAB PO SCH ×2 (08:43→21:00)
--- NOTE | 2023-04-27 08:43 | NUR ---
ADMINISTERED SCHEDULED MEDICATIONS. TOLERATED WELL.
[2023-04-27] MEDS: TIMOLOL OP 0.25% 5 ML BTL OP SCH (09:08)
[2023-04-27] MEDS: prednisoLONE 1% OP 5 ML BTL OP SCH ×2 (09:08→21:14)
[2023-04-27] MEDS: levETIRAcetam 500 MG in NACL 0.9% 100 ML IV SCH ×2 (09:15→20:01)
[2023-04-27] MEDS: PANTOPRAZOLE 40 MG INJ VIAL IVP SCH (09:15)
--- NOTE | 2023-04-27 09:15 | NUR ---
SCHEDULE IV MEDICATIONS GIVEN. TOLERATED WELL.
[2023-04-27] MEDS ORDERED: LORazepam 2 MG/ML VIAL ONE (09:29)
[2023-04-27] MEDS ORDERED: LORazepam 2 MG/ML VIAL IVP PRN (09:45)
--- NOTE | 2023-04-27 09:48 | NUR ---
PT LEFT. MRI @ [facility].
--- NOTE | 2023-04-27 11:36 | NUR ---
PT RETURN FROM MRI. TRANSPORTED BY 3 [facility] STAFF AND 1 [facility] STAFF.
--- NOTE | 2023-04-27 11:37 | NUR ---
INFORMED BY CHARGE NURSE THAT WHILE DURING TRANSPORT PT HAD EPISODE OF SOB. OXYGEN 2L/NC WAS IN PLACED. SATTING 95%. WILL CONTINUE TO MONITOR.
--- NOTE | 2023-04-27 11:59 | NUR ---
BS CHECKED 106. NO COVERAGE NEEDED.
--- NOTE | 2023-04-27 13:20 | NUR ---
HYDRALAZINE PO WAS NOT GIVEN. PT UNABLE TO SWALLOW.
--- NOTE | 2023-04-27 14:16 | NUR ---
04/27/23 RD INITIAL ASSESSMENT COMPLETED PLEASE REFER TO NUTRITION ASSESSMENT UNDER CARE ACTIVITY FOR ESTIMATED NUTRITIONAL NEEDS. 1. CONTINUE CCHO 60 GRAM AND CARDIAC DIET TOLERATED 2. RD TO FOLLOW-UP 7 DAYS, LOW RISK MAXIMUS MOORE RD Addendum: 04/27/23 at [address] 04/27/23 RD INITIAL ASSESSMENT COMPLETED PLEASE REFER TO NUTRITION ASSESSMENT UNDER CARE ACTIVITY FOR ESTIMATED NUTRITIONAL NEEDS. 1. CONTINUE RENAL DIET, PUREE, NECTAR THICK DIET TOLERATED AND ADD CCHO 60 GRAMS (PER RN PATIENT IS LEAVING TODAY SO SWALLOW EVALUATION IS NOT NECESSARY) 2. RD WILL CONTINUE TO MONITOR PO INTAKE, WEIGHT, SKIN INTEGRITY AND NUTRITION RELATED LAB VALUES. 3. RD TO FOLLOW-UP 2-3 DAYS, MODERATE RISK MAXIMUS MOORE RD
--- NOTE | 2023-04-27 17:46 | NUR ---
BS CHECKED 95. NO COVERAGE NEEDED.
--- NOTE | 2023-04-27 17:55 | NUR ---
CHEST XRAY RESULT CAME IN, REPORTED TO DR. CHANDLER.
--- NOTE | 2023-04-27 17:56 | NUR ---
PT UNABLE TO SWALLOW. CONGESTION NOTED. PRN SUCTION RENDERED. AT BEDSIDE CONCERN BLOOD SUGAR. DR. CHANDLER NOTIFIED AWAITING FOR RESPONSE.
--- NOTE | 2023-04-27 18:13 | NUR ---
NEW ORDERS RECEIVED FROM DR. CHANDLER D5 NS @ 60CC/HR AND RT SERVICE REQUEST. NOTED AND CARRIED OUT.
--- NOTE | 2023-04-27 19:10 | NUR ---
BEDSIDE REPORT GIVEN TO ELECTRICAL CONTROL ASSEMBLER FOR CONTINUITY OF CARE. REMAINS STABLE.
--- NOTE | 2023-04-27 19:30 | NUR ---
RECEIVED REPORT FROM DAY SHIFT NURSE FOR CONTINUITY OF CARE. PT IS AWAKE AND ALERT.PER DAY NURSE PT UNABLE TO SWALLOW AFTERNOON MEDICATIONS.PO HYDRALAZINE CHANGED TO IV Q8 PRN. RESTING IN BED. FAMILY AT BEDSIDE. PT NOT IN ANY DISTRESS AT THIS MOMENT.IV ON L HAND G22.SL,. POC DISCUSSED. ALL PRECAUTIONS IN PLACE.CALL LIGHT WITHIN REACH. WILL CONTINUE TO MONITOR THE PT.
[2023-04-27] MEDS ORDERED: ALBUTEROL SULFATE/IPRATROPIU 3 ML SOL IH ONE (20:11)
--- NOTE | 2023-04-27 20:42 | NUR ---
FAMILY AT BEDSIDE REPORTED PT CHANGE OF CONDITION. PER ASSESSMENT, PT WITH SLURRING OF SPEECH AND DIFFICULTY OF SWALLOWING. SPOKE WITH DR. PATEL AND RECEIVED ORDERS.PT IS NPO. DOCTOR ORDERED CLOSE MONITORING OF PATIENT WILL REASSESS TOMORROW MORNING BY MD.PER MD PT CAN BE TRANSFERRED TO ICU IF CONDITION WORSENS. LATEST VITAL SIGNS FOLLOWS : 143/81, UT 83 RR 18 O2 SAT 100% ON 2L O2 VIA NC.PT WITH NO S/SX OF DISTRESS. NO SOB AND NO PAIN OF THE MOMENT.ALL PRECAUTIONS IN PLACE. CALL LIGHT WITHIN REACH.WILL CLOSELY MONITOR.
[2023-04-27] MEDS: MIRTAZAPINE 15 MG TAB PO SCH (21:00)
--- NOTE | 2023-04-27 21:00 | NUR ---
SCHEDULED MEDICATIONS GIVEN. PT TOLERATED WELL. WILL CONTINUE TO MONITOR.
--- NOTE | 2023-04-27 21:00 | NUR ---
PO MEDS HELD. PT NPO.
[2023-04-27] MEDS: DEXT 5% /NACL 0.9% 1,000 ML IV SCH (21:52)
--- NOTE | 2023-04-27 22:00 | NUR ---
VITAL SIGNS FOLLOWS : BP 141/64, KS 86, RR 18 100% O2 ON 2L NC.PT ASLEEP.NO S/SX OF DISTRESS NOTED. IS STABLE.
--- NOTE | 2023-04-27 22:41 | NUR ---
CALLED TO BEDSIDE.SUCTIONED MOUTH. PT NO COMPLAINS OF PAIN AND SOB OF THE MOMENT. WILL CONTINUE TO MONITOR.
[2023-04-28] VITALS (12 sets, daily range): BP systolic 127–163; BP diastolic 59–83; PULSE 75–90; RESP 16–19; TEMP 96.8–98.3; O2SAT 96–100
--- NOTE | 2023-04-28 02:30 | NUR ---
PT ASLEEP. CHEST RISE AND FALL NOTED. NO S/SX OF DISTRESS. ALL PRECAUTIONS IN PLACE. CALL LIGHT WITHIN REACH. WILL CONTINUE TO MONITOR.O2 SAT AT 100%.
--- NOTE | 2023-04-28 04:30 | NUR ---
PT ASLEEP. CHEST RISE AND FALL NOTED. NO S/SX OF DISTRESS. ALL PRECAUTIONS IN PLACE. CALL LIGHT WITHIN REACH. WILL CONTINUE TO MONITOR.
--- NOTE | 2023-04-28 05:02 | NUR ---
RECEIVED CALL FROM RN, STATING PATIENT NEEDED BREATHING TREATMENT, UPON ENTERING ROOM PATIENT WAS BEING MOVED BY NURSING STAFF, THE FAMILY MEMBER PRESENT ASKED IF HIS TREATMENTS WERE SCHEDULED, I EXPLAINED THE TREATMENTS WERE NEEDED, THE PATEINT FELL ASLEEP DURING MY CHECK, AND STARTED SNORING, I LISTENED TO THE BREATH SOUNDS AND THEY WERE CLEAR BILATERALLY THROUGHOUT ALL GRAY, I ATTEMPTED TO EXPLAIN TO THE FAMILY MEMBER PRESENT THE BREATH SOUNDS WERE CLEAR, AND WHAT SHE HEARD A WHEEZE WAS THE PATIENT SNORING. THE PATIENT WAS IN NO DISTRESS ON A 2L N/C SATURATIONS 100%, I ADMINISTERED THE TREATMENT THERE WAS NO CHANGE NOTED, I ASKED FAMILY MEMBER IF SHE WOULD LIKE ME TO ASK FOR SCHEDULED TREATMENTS FOR THE PATIENT, IF IT WOULD MAKE HER MORE COMFORTABLE, SHE EXCLAIMED " I'M NOT THE EXPERT!," I EXPLAINED THE PATIENT COULD HAVE THE HAS NEEDED TREATMENT EVERY 6 HOURS, AND THE NEXT TIME AVAILABLE WOULD BE AT 1115AM, UNLESS WE ADJUSTED THE TREATMENT TO SCHEDULED OR PRN WITH ADIFFERENT FREQUENCY, THE PATIENTS FAMILY MEMBER ASKED MY NAME, AND I ASKED IF THERE WAS ANYTHING ELSE I ACCOMODATE THEM WITH BEFORE I EXITED THE ROOM.
[2023-04-28] MEDS: hydrALAZINE 20 MG/ML VIAL IVP PRN (05:09)
[2023-04-28] MEDS: ALBUTEROL SULFATE/IPRATROPIU 3 ML SOL IH PRN (05:11)
--- NOTE | 2023-04-28 05:50 | NUR ---
PT CLEANED AND REPOSITIONED. PT NO COMPLAINS OF PAIN OR SOB AT THIS TIME. ALL PRECAUTIONS IN PLACE. CALL LIGHT WITHIN REACH. WILL CONTINUE TO MONITOR.
[2023-04-28] MEDS: BLOOD GLUCOSE MONITORING 1 DEV DEV FS SCH ×4 (06:09→21:17)
[2023-04-28 06:30] LABS: BASOPHILS % (AUTO) 0.3 % (0.0-2.0); EOSINOPHILS # (AUTO) 0.2 K/uL (0-0.4); EOSINOPHILS % (AUTO) 2.9 % (0.0-4.0); HEMOGLOBIN 10.3 g/dL (12.0-18.0); LYMPHOCYTES # (AUTO) 1.1 K/uL (2.0-11.5); LYMPHOCYTES % (AUTO) 17.7 % (20.5-51.1); MEAN CORPUSCULAR HEMOGLOBIN 32 pg (27-31); MEAN CORPUSCULAR HGB CONC 33 g/dL (33-37); MONOCYTES # (AUTO) 0.4 K/uL (0.8-1.0); MONOCYTES % (AUTO) 7.1 % (1.7-9.3); NEUTROPHILS # (AUTO) 4.3 K/uL (1.8-7.7); PLATELET COUNT (AUTO) 115 K/uL (140-450); RED BLOOD CELL COUNT(AUTO) 3.23 MIL/uL (4.20-6.10); RED CELL DISTRIBUTION WIDTH 15.2 % (11.6-13.7)
[2023-04-28 06:32] LABS: ALBUMIN 3.3 g/dL (3.4-5.0); ANION GAP 18.8 (8-16); CARBON DIOXIDE 26.5 mmol/L (21-32); POTASSIUM 4.3 mmol/L (3.5-5.1); TOTAL BILIRUBIN 0.5 mg/dL (0.0-1.0)
[2023-04-28 06:37] LABS: CREATININE 8.8 mg/dL (0.6-1.3)
--- NOTE | 2023-04-28 07:02 | NUR ---
PT IS STABLE. NO ACUTE EVENTS THROUGHOUT THE NIGHT. PT NO SIGNS AND SYMPTOMS OF DISTRESS NOTED. ALL NEEDS MET. NO COMPLAINS OF PAIN AT THE MOMENT.ALL PRECAUTIONS IN PLACE. CALL LIGHT WITHIN REACH. WILL ENDORSE TO DAY SHIFT NURSE.
--- NOTE | 2023-04-28 07:15 | NUR ---
RECEIVED BEDSIDE REPORT FROM PUBLIC RELATIONS NURSE FOR CONTINUITY OF CARE. PT IS ASLEEP, AWAKEN BY NAME, ON 2L NC, NO SIGN OF DISTRESS, CALL LIGHT WITHIN REACH. AT BEDSIDE.
[2023-04-28] MEDS: lisinopriL 10 MG TAB PO SCH ×2 (09:00→21:00)
[2023-04-28] MEDS: carvediloL 12.5 MG TAB PO SCH ×2 (09:00→21:00)
[2023-04-28] MEDS: VALPROIC ACID 250 MG/5 ML UDC PO SCH (09:00)
[2023-04-28] MEDS: NIFEdipine 60 MG TABER PO SCH (09:00)
--- NOTE | 2023-04-28 09:00 | NUR ---
ACCORDING TO PT HAD A SEIZURE AT 0745 FOR 2 MINS. FIELD INSTALLATION TECHNICIAN STATED NO CHANGE IN THE TELE. VS FOLLOWS T:98.4 BP: 130/66 HR: 75 O2: 100 RR:17. MD INFORMED. CALL LIGHT WITHIN REACH. FAMILY AT BEDSIDE.
[2023-04-28] MEDS: levETIRAcetam 500 MG in NACL 0.9% 100 ML IV SCH ×2 (09:06→21:14)
[2023-04-28] MEDS: PANTOPRAZOLE 40 MG INJ VIAL IVP SCH (09:07)
[2023-04-28] MEDS: TIMOLOL OP 0.25% 5 ML BTL OP SCH (09:08)
[2023-04-28] MEDS: prednisoLONE 1% OP 5 ML BTL OP SCH ×2 (09:08→21:19)
--- NOTE | 2023-04-28 09:58 | NUR ---
PAGED NEURO PER PRIMARY, AWAITING FOR ORDERS. PT IS RESPONSIVE, ABLE TO SQUEEZE MY HAND AND SAY MY NAME. PT STILL SLURRED SPEECH. CALL LIGHT WITHIN REACH. FAMILY AT BEDSIDE.
--- NOTE | 2023-04-28 10:58 | NUR ---
INFORMED PRIMARY, AWAITING FOR NEURO'S ORDERS.
--- NOTE | 2023-04-28 11:20 | NUR ---
ROUNDED ON PT. PATIENT IS RESTING NO SOB NOTED OR RESP DISTRESS, GOOD CHEST RISE , BREATH SOUNDS ARE CLEAR SATURATION AT THIS TIME IS 100% ON 2LNC, FAMILY IS AT BEDSIDE CALL LIGHT WITHIN REACH. WILL CONTINUE TO MONITOR THROUGHOUT SHIFT
--- NOTE | 2023-04-28 14:55 | NUR ---
SWALLOW EVAL WAS ORDERED FOR PT.
--- NOTE | 2023-04-28 15:54 | NUR ---
SWALLOW EVAL DONE, RECOMMENDATION OF NECTAR THICK.
[2023-04-28] MEDS: DEXT 5% /NACL 0.9% 1,000 ML IV SCH (16:48)
--- NOTE | 2023-04-28 17:00 | NUR ---
DR WOLFF MADE THE ROUNDS, INFORMED OF THE SWALLOW EVAL WA DONE ALREADY. FAMILY AT BEDSIDE. NEW ORDERS PUT.
--- NOTE | 2023-04-28 17:30 | NUR ---
RT CALLED TO PT BEDSIDE FOR SUCTIONING. PT HAS SCANT AMOUNT OF SECRETIONS. RT SXN WITH YANKAUER SMALL AMOUNT OF CLEAR SECRETIONS, COACHED PATIENT ON HOW TO CLEAR SECRETIONS WITH STRONG COUGH. BS ARE CLEAR NO RESP DISTRESS, NO SOB. 98% ON 2L NC . FAMILY AT BEDSIDE SHERON NURSE @ BEDSIDE, CALL LIGHT WITHIN PT REACH, WILL CONT TO MONITOR PT THROUGHOUT SHIFT
[2023-04-28] MEDS: VALPROATE SODIUM 750 MG in NACL 0.9% 100 ML IV SCH (18:13)
--- NOTE | 2023-04-28 19:07 | NUR ---
AWAITING FOR ORDER TO ADVANCE DIET. WILL ENDORSE TO PRODUCT DISTRIBUTION SPECIALIST NURSE. HD DONE, REMOVED 2500 FLUIDS.
--- NOTE | 2023-04-28 19:45 | NUR ---
GAVE REPORT TO MANAGING COGNITIVE ENGINEER NURSE FOR CONTINUITY OF CARE. PT IS STABLE, FAMILY AT BED SIDE. CALL LIGHT WITHIN REACH.
--- NOTE | 2023-04-28 19:45 | NUR ---
ENDORSED HEAD CT WITHOUT CONTRAST TO NIGHT NURSE PER MD ORDER. AWAITING FOR RADIOLOGY.
--- NOTE | 2023-04-28 19:46 | NUR ---
PATIENT AWAKE WITH EYES OPEN. NO S/S OF RESPIRATORY DISTRESS. BREATHING NORMAL WITH SYMMETRICAL RISE AND FALL OF THE CHEST. FLACC 0. IVF OF D5 NS INFUSING AT 60 MLS/HR. CALL LIGHT WITHIN REACH. ALL SAFETY PRECAUTIONS ARE IN PLACE. BED WHEELS LOCED IN LOW POSITION. AND DAUGHTER AT BEDSIDE. WILL CONTINUE TO MONITOR . Addendum: 04/28/23 at 2301 by eYssy Khalil RN RN O2 AT 2L NC SATING 97%
[2023-04-28] MEDS: MIRTAZAPINE 15 MG TAB PO SCH (21:00)
[2023-04-28] MEDS ORDERED: DIVALPROEX 250 MG TABEC PO SCH (21:00)
--- NOTE | 2023-04-28 21:14 | NUR ---
SCHEDULED MEDICATIONS GIVEN.
[2023-04-29] VITALS (9 sets, daily range): BP systolic 142–190; BP diastolic 62–81; PULSE 80–93; RESP 18–21; TEMP 98–99.3; O2SAT 87–100
--- NOTE | 2023-04-29 00:20 | NUR ---
CT HEAD DONE, BACK TO HIS ROOM.
[2023-04-29] MEDS: DEXT 5% /NACL 0.9% 1,000 ML IV SCH ×2 (04:25→12:58)
[2023-04-29 06:00] LABS: BASOPHILS % (AUTO) 0.6 % (0.0-2.0); EOSINOPHILS # (AUTO) 0.1 K/uL (0-0.4); EOSINOPHILS % (AUTO) 2.4 % (0.0-4.0); HEMATOCRIT 28.1 % (36-52); HEMOGLOBIN 9.4 g/dL (12.0-18.0); LYMPHOCYTES # (AUTO) 0.9 K/uL (2.0-11.5); LYMPHOCYTES % (AUTO) 14.3 % (20.5-51.1); MEAN CORPUSCULAR HEMOGLOBIN 32 pg (27-31); MEAN CORPUSCULAR HGB CONC 33 g/dL (33-37); MEAN CORPUSCULAR VOLUME 95.9 fL (80-94); MONOCYTES # (AUTO) 0.5 K/uL (0.8-1.0); MONOCYTES % (AUTO) 7.6 % (1.7-9.3); NEUTROPHILS # (AUTO) 4.5 K/uL (1.8-7.7); NEUTROPHILS % (AUTO) 75.1 % (42.2-75.2); PLATELET COUNT (AUTO) 103 K/uL (140-450); RED BLOOD CELL COUNT(AUTO) 2.93 MIL/uL (4.20-6.10); RED CELL DISTRIBUTION WIDTH 15.1 % (11.6-13.7)
[2023-04-29 06:49] LABS: TOTAL BILIRUBIN 0.5 mg/dL (0.0-1.0)
[2023-04-29 06:52] LABS: CREATININE 5.6 mg/dL (0.6-1.3)
[2023-04-29] MEDS: BLOOD GLUCOSE MONITORING 1 DEV DEV FS SCH ×4 (06:54→21:58)
--- NOTE | 2023-04-29 07:05 | NUR ---
RECEIVED PT ON 2L NASAL CANNULA, SATURATION 99%. NO SOB, NO DISTRESS NOTED. NO WHEEZE HEARD ON AUSCULTATION, PT HAS A SLIGHT SNORE WHEN HE IS SLEEPING BUT WITH PROPER HEAD PLACEMENT PT IS COMFORTABLE. CALL LIGHT WITHIN REACH OF PATIENT. WILL CONTINUE TO MONITOR.
--- NOTE | 2023-04-29 07:25 | NUR ---
RECEIVED BEDSIDE REPORT FROM BORING INSPECTOR NURSE FOR CONTINUITY OF CARE. PT IS ASLEEP, AWAKEN BY NAME, PT ON 2L NC. NO SIGN OF DISTRESS, CALL LIGHT WITHIN REACH.
[2023-04-29] MEDS: hydrALAZINE 20 MG/ML VIAL IVP PRN ×2 (07:29→21:31)
[2023-04-29] MEDS: carvediloL 12.5 MG TAB PO SCH ×2 (09:00→21:00)
[2023-04-29] MEDS: lisinopriL 10 MG TAB PO SCH ×2 (09:00→21:00)
[2023-04-29] MEDS: NIFEdipine 60 MG TABER PO SCH (09:00)
[2023-04-29] MEDS: PANTOPRAZOLE 40 MG INJ VIAL IVP SCH (09:17)
[2023-04-29] MEDS: prednisoLONE 1% OP 5 ML BTL OP SCH ×2 (09:18→23:48)
[2023-04-29] MEDS: TIMOLOL OP 0.25% 5 ML BTL OP SCH (09:18)
--- NOTE | 2023-04-29 09:30 | NUR ---
ALL AM PO MEDS HELD PT IS NOT FULLY AWAKE TO SWALLOW, [facility] SUGGESTED THAT HE SHOULD BE FULLY AWAKE HE IS AT RISK FOR ASPIRATION.
[2023-04-29] MEDS: VALPROATE SODIUM 750 MG in NACL 0.9% 100 ML IV SCH ×2 (09:35→22:00)
--- NOTE | 2023-04-29 09:57 | NUR ---
AT 0925 PT'S FAMILY AT BEDSIDE, INFORMED ME AND STUDENT DOCTOR THAT THE PT HAD 3 UNTIMED SEIZURES AT 0830, 0852 (FULL BODY) AND 0902. PRIMARY AND NEURO INFORMED. VS ARE BP:142/81, HR: 93 RR: 17 TEMP:98.4 O2: 98%. PT IS STABLE, SQUEEZED 'S HAND. CALL LIGHT WITHIN REACH.
--- NOTE | 2023-04-29 10:10 | NUR ---
CHECKED ON PT, FAMILY AT BEDSIDE, NO SOB, NO DISTRESS NOTED. LOWERED SHADE OUTSIDE OF ROOM DUE TO SUN REFLECTING OFF OF FLOOR. CALL LIGHT WITHIN REACH OF PT, WILL CONTINUE TO MONITOR.
[2023-04-29] MEDS: levETIRAcetam 500 MG in NACL 0.9% 100 ML IV SCH ×2 (10:32→21:59)
--- NOTE | 2023-04-29 10:45 | NUR ---
PT HAD ANOTHER SEIZURE ACCORDING TO AT 1030, AT 1036 I WITNESSED PT'S BODY TWITCHED AND ROLLED THE EYES UP THAT LASTED FOR 10 SECS. INFORMED MD AND NEURO. PT VS STABLE, FAMILY AT BEDSIDE. CALL LIGHT WITHIN REACH.
--- NOTE | 2023-04-29 15:00 | NUR ---
ROUNDED IN PT'S ROOM, AT BEDSIDE, PT AWAKE AND NO SIGNS OF DISTRESS. ON 2L NC. CALL LIGHT WITHIN REACH.
--- NOTE | 2023-04-29 18:02 | NUR ---
DR. NORWOOD CALLED FOR NEW ORDERS FOR PT. ENFORCED ORDER.
[2023-04-29] MEDS ORDERED: COMMUNICATION ORDER MC SCH (18:10)
--- NOTE | 2023-04-29 19:24 | NUR ---
GAVE BEDSIDE REPORT TO FORCE DISPATCHER NURSE FOR CONTINUITY OF CARE. PT IS AWAKE, FAMILY AT BEDSIDE. NO SIGNS OF DISTRESS. CALL LIGHT WITHIN REACH.
--- NOTE | 2023-04-29 19:25 | NUR ---
AV SHUNT FOR DIALYSIS IS ON RIGHT FOREARM, INTACT AND PATENT.
--- NOTE | 2023-04-29 19:25 | NUR ---
RECEIVED REPORT FROM DAY SHIFT NURSE. PT IS ON BED WITH FAMILY AT BED SIDE. PT IS AWAKE AND ALERT, ABLE TO RESPONSE VERBALLY ON LIMITED WORDS. PT IS ON 2 LPM WITH NO SOB OR DISTRESS. IV SITE IS ON LEFT HAND 22G, INFUSING WELL D5NS AT 60ML. PT IS ON STANDARD ISOLATION.
[2023-04-29] MEDS: MIRTAZAPINE 15 MG TAB PO SCH (21:00)
--- NOTE | 2023-04-29 21:00 | NUR ---
NOT ADMINISTER ORAL MEDICATIONS (COREG, REMERON & ZESTRIL) DUE TO PT UNABLE TO SWALLOW.
--- NOTE | 2023-04-29 21:15 | NUR ---
PT IS SLEEPING WELL.
--- NOTE | 2023-04-29 23:48 | NUR ---
UNABLE TO ADMINISTER PRED FORTE EYE DROP ON TIME DUE TO PT IS ASLEEP, PT JUST AWAKE.
[2023-04-30] VITALS (9 sets, daily range): BP systolic 127–176; BP diastolic 71–78; PULSE 75–88; RESP 15–20; TEMP 96.4–98.3; O2SAT 94–100
[2023-04-30] MEDS: VALPROATE SODIUM 750 MG in NACL 0.9% 100 ML IV SCH ×2 (05:48→14:32)
[2023-04-30] MEDS: BLOOD GLUCOSE MONITORING 1 DEV DEV FS SCH ×3 (06:53→17:16)
--- NOTE | 2023-04-30 06:53 | NUR ---
BLOOD SUGAR CHECKED = 89, NO SLIDING SCALE COVERAGE. PT IS ON STABLE CONDITION, NO SOB OR DISTRESS.
--- NOTE | 2023-04-30 07:20 | NUR ---
RECEIVED BEDSIDE REPORT FROM ADMINISTRATIVE JOB TITLES NURSE FOR CONTINUITY OF CARE, PT IS ASLEEP, AWAKEN BY TOUCH, ON 2L NC, NO SIGN OF DISTRESS.CALL LIGHT WITHIN REACH.
[2023-04-30] MEDS: levETIRAcetam 500 MG in NACL 0.9% 100 ML IV SCH (08:18)
[2023-04-30] MEDS: PANTOPRAZOLE 40 MG INJ VIAL IVP SCH (08:18)
[2023-04-30] MEDS: prednisoLONE 1% OP 5 ML BTL OP SCH (08:19)
[2023-04-30] MEDS: TIMOLOL OP 0.25% 5 ML BTL OP SCH (08:19)
[2023-04-30] MEDS: lisinopriL 10 MG TAB PO SCH (09:00)
[2023-04-30] MEDS: NIFEdipine 60 MG TABER PO SCH (09:00)
[2023-04-30] MEDS: carvediloL 12.5 MG TAB PO SCH (09:00)
[2023-04-30 09:01] LABS: ALBUMIN 2.5 g/dL (3.4-5.0); ANION GAP 9.2 (8-16); CARBON DIOXIDE 32.2 mmol/L (21-32); CREATININE 0.6 mg/dL (0.6-1.3); POTASSIUM 4.4 mmol/L (3.5-5.1); TOTAL BILIRUBIN 0.2 mg/dL (0.0-1.0)
--- NOTE | 2023-04-30 13:30 | NUR ---
HD DONE BY DIALYSIS NURSE, PT WAS STABLE, NO SEIZURE, VS STABLE, REMOVED 2600ML OF FLUIDS. FAMILY AT BEDSIDE, CALL LIGHT WITHIN REACH.
[2023-04-30] MEDS: DEXT 5% /NACL 0.9% 1,000 ML IV SCH (14:29)
--- NOTE | 2023-04-30 15:25 | NUR ---
PARTS CONSULTANT REQUESTED BY FAMILY MEMBERS TO ASSESS PATIENT FOR SUCTIONING; PATIENT PRESENTING WITH INTERMITTENT SPONTANEOUS COUGH; AUSCULTATION TO BILATERAL PULMONARY GRAY PRESENTING WITH EXPIRATORY WHEEZE AND INSP/EXP RALES; AUSCULTATION TO RIGHT SIDE OF NECK PRESENTING WITH RETAINED SECRETIONS; OROPHARYNGEAL SUCTION TRIGGERING A STRONG PRODUCTIVE COUGH FOR COPIOUS THIN WHITE SECRETIONS; AIRWAY PATENT; HHN PRN THERAPY GIVEN AT THIS TIME; SAFETY AND SECURITY MANAGER TO FURTHER ASSES FOR SCHEDULED HHN THERAPY
[2023-04-30] MEDS: ALBUTEROL SULFATE/IPRATROPIU 3 ML SOL IH PRN (15:47)
--- NOTE | 2023-04-30 16:16 | NUR ---
CALLED [facility] TO GIVE REPORT FOR TRANSFER OF CARE, RN INFORMED ME TO CALL AT 1830 INSTEAD.
--- NOTE | 2023-04-30 18:40 | NUR ---
CALLED [facility] AND TALKED TO CHARGE NURSE MEME FOR TRANSFER OF CARE. PT IS STABLE, NO SEIZURE EPISODE TODAY. DUMP TRUCK OPERATOR IS AT 194 TO [facility].
[2023-04-30] MEDS: hydrALAZINE 20 MG/ML VIAL IVP PRN (18:59)
--- NOTE | 2023-04-30 19:14 | NUR ---
GAVE 10 MG HYDRALAZINE, WASTED 10MG WITNESSED BY CHILO.
[2023-04-30] MEDS ORDERED: ALBUTEROL SULFATE/IPRATROPIU 3 ML SOL IH SCH (19:30)
--- NOTE | 2023-04-30 19:30 | NUR ---
GAVE REPORT TO ENTRY SPECIALISTS FOR CONTINUITY OF CARE, PT IS STABLE , NO SIGN OF DISTRESS. FAMILY AT BEDSIDE. CALL LIGHT WITHIN REACH. AWAITING FOR PLANOGRAMMER FOR TRANSFER TO [place]. ENDORSED TO NIGHT NURSE.
--- NOTE | 2023-04-30 19:30 | NUR ---
RECEIVED REPORT FROM DAY SHIFT RN FOR CONTINUITY OF CARE. PT IS RESTING IN BED. NOT IN ANY DISTRESS. FAMILY BY BEDSIDE. POC DISCUSSED. WILL CONTINUE TO MONITOR.
--- NOTE | 2023-04-30 19:56 | NUR ---
PT WAS PICKED UP BY LEANNE. PT IS GOING TO [facility] IN [facility].
== END 2023-04-30 19:56 | DRG 64 ==
LOC: MED 21:06 → MTU 04-22 05:49
PROVIDERS: ADMIT Student in an Organized Health Care Education/Training Program; ATTEND Student in an Organized Health Care Education/Training Program
PROC: 5A1D70Z Performance of Urinary Filtration, Intermittent, Less than 6 Hours Per Day (ICD-10-PCS; 2023-04-22)
PROC: 0DBP8ZX Excision of Rectum, Via Natural or Artificial Opening Endoscopic, Diagnostic (ICD-10-PCS; 2023-04-24)
PROC: 0DBM8ZZ Excision of Descending Colon, Via Natural or Artificial Opening Endoscopic (ICD-10-PCS; 2023-04-24)
PROC: 0DBL8ZZ Excision of Transverse Colon, Via Natural or Artificial Opening Endoscopic (ICD-10-PCS; 2023-04-24)
PROC: 0DBN8ZZ Excision of Sigmoid Colon, Via Natural or Artificial Opening Endoscopic (ICD-10-PCS; 2023-04-24)
PROC: 4A10X4Z Monitoring of Central Nervous Electrical Activity, External Approach (ICD-10-PCS; principal; 2023-04-25)
PROC: 5A1D70Z Performance of Urinary Filtration, Intermittent, Less than 6 Hours Per Day (ICD-10-PCS; 2023-04-28)
PROC: 5A1D70Z Performance of Urinary Filtration, Intermittent, Less than 6 Hours Per Day (ICD-10-PCS; 2023-04-29)
PROC: 5A1D70Z Performance of Urinary Filtration, Intermittent, Less than 6 Hours Per Day (ICD-10-PCS; 2023-04-30)
DX: I63.9 Cerebral infarction, unspecified (principal); G82.50 Quadriplegia, unspecified; N18.6 End stage renal disease; K57.31 Diverticulosis of large intestine without perforation or abscess with bleeding; G81.94 Hemiplegia, unspecified affecting left nondominant side; I12.0 Hypertensive chronic kidney disease with stage 5 chronic kidney disease or end stage renal disease; K62.6 Ulcer of anus and rectum; D64.9 Anemia, unspecified; G40.909 Epilepsy, unspecified, not intractable, without status epilepticus; E11.22 Type 2 diabetes mellitus with diabetic chronic kidney disease; Z20.822 Contact with and (suspected) exposure to COVID-19; Z99.2 Dependence on renal dialysis; Z88.8 Allergy status to other drugs, medicaments and biological substances; Z91.040 Latex allergy status; Z91.013 Allergy to seafood
CPT/HCPCS: 36415; 70450; 71045; 80053; 80173; 82140; 82948; 83690; 83735; 84100; 84484; 85025; 85610; 85730; 86886; 86900; 86901; 87081; 88305; 92526; 93005; 94640; 95816; 96374; 96375; 99285; C9113; J0360; J1200; J1815; J1953; J2060; J2250; J3010; J3490; J7030; Q0092